=== PATIENT | female | born 1965 | race Caucasian/White ===

== ENCOUNTER 2020-01-24 13:32 | Outpatient (CLI) | payer BC, SELFPAY ==
--- NOTE | ~2020-01-24 | XR_ITS ---
XR finger 5th LT min 2V DATE: 01/24/2020 14:05 INDICATION: Injury, splinter TECHNIQUE: 3 views COMPARISON: None FINDINGS: No radiopaque soft tissue foreign body is evident. There is no subcutaneous emphysema. No fracture, dislocation, periosteal reaction or bone destruction. IMPRESSION: No fracture or dislocation or radiopaque foreign body Reviewed, dictated and finalized at location A.
== END 2020-01-24 13:33 | disposition home or self-care (01) ==
PROVIDERS: PCP Family Medicine; Visit Provider Nurse Practitioner Family
DX: S69.90XA Unspecified injury of unspecified wrist, hand and finger(s), initial encounter (principal); X58.XXXA Exposure to other specified factors, initial encounter
CPT/HCPCS: 73140

== ENCOUNTER 2020-08-09 12:44 | Outpatient (CLI) | payer BC, SELFPAY ==
--- NOTE | ~2020-08-09 | XR_ITS ---
EXAMINATION: XR chest 2V 08/09/2020 13:10 INDICATION: Dyspnea. PROCEDURE: 2 view chest COMPARISON: 07/13/2006 FINDINGS: The lungs are clear. The cardiomediastinal silhouette is within normal limits. There are no pleural effusions. There is no pneumothorax suspected. There are calcified granulomas in the lef t lung and mediastinum. IMPRESSION: 1: NO ACUTE CARDIOPULMONARY DISEASE. Reviewed, dictated and finalized at location A. OGRAPH OPERATOR
== END 2020-08-09 12:45 | disposition home or self-care (01) ==
PROVIDERS: PCP Family Medicine; Visit Provider Nurse Practitioner Family
DX: R06.00 Dyspnea, unspecified (principal); B94.8 Sequelae of other specified infectious and parasitic diseases
CPT/HCPCS: 71046

== ENCOUNTER → 2020-10-21 08:17 | Outpatient (CLI) | payer BC, SELFPAY ==
--- NOTE | ~2020-10-21 | MR_ITS ---
EXAMINATION: MR brain/brain stem wo con DATE: 10/21/2020 09:09 CDT INDICATION: Migraine headaches with aura TECHNIQUE: Magnetic resonance imaging (MRI) of the brain and brainstem was performed without intraven ous contrast. Sequences included sagittal and axial T1-weighted SE, axial diffusion-weighted FS SE, a xial T2*-weighted GRE, axial T2-weighted FLAIR Propeller, and axial T2-weighted Propeller. Apparent d iffusion coefficient (ADC) maps were created. COMPARISON: No prior studies for comparison. FINDINGS: The brain volume and ventricular system are within normal limits. The brain parenchymal si gnal intensity pattern and josue/white matter is normal and there is no evidence of hemorrhage, space occupying masses or infarctions. The flow signal voids of the major arterial structures about the [place] and within the roel r dural venous sinuses appear grossly unremarkable and patent. The seventh and eighth cranial nerve complexes are normal. The mid sagittal image demonstrates a normal craniovertebral junction and jefferson us callosum. The paranasal sinuses are grossly unremarkable. IMPRESSION: 1: Unremarkable MRI of the brain. Reviewed, dictated and finalized at location A.
== END ==
PROVIDERS: PCP Family Medicine; Visit Provider Family Medicine
DX: G43.109 Migraine with aura, not intractable, without status migrainosus (principal)
CPT/HCPCS: 70551

== ENCOUNTER 2021-05-01 17:18 | Emergency (ER) | payer BC, SELFPAY ==
[2021-05-01 17:28] VITALS: BP 119/65; PULSE 78; RESP 20; TEMP 35.5; O2SAT 100
[2021-05-01 17:35] VITALS: BP 119/65; PULSE 78; RESP 20; TEMP 35.5; O2SAT 100
--- NOTE | 2021-05-01 17:59 | ECG_ITS ---
Measurements Intervals [place] Rate: 68 P: 72 VT: 156 QRS: 62 QRSD: 99 T: 43 QT: 382 QTc: 409 Interpretive Statements SINUS RHYTHM POSSIBLE LEFT ATRIAL ENLARGEMENT INCOMPLETE RIGHT BUNDLE BRANCH BLOCK BASELINE WANDER- V1 BORDERLINE ECG Electronically Signed On 05-02-2021 9:23:21 CDT by Kosta Barros D.O.
--- NOTE | 2021-05-01 18:24 | ED.DIZZY ---
HPI - Dizziness General Chief Complaint: Dizziness Stated Complaint: dizzy/fainted/indigestion Time Seen by Provider: 05/01/21 18:10 Source: patient Mode of arrival: ambulatory Limitations: no limitations History of Present Illness HPI Narrative: Bárbara Lara is a 55 yo female with a PMH of migraine headache and GERD who [facility] experiencing what she believes to be was passing out in bed this morning at 5:00 in the morning when she woke up because she was belching from GERD, FERNANDO [place] under the pillow and did a second time. She says she has constant problems with belching associated COVID back in August and has struggled to try to get out of control she was given a PPI she states did not help, taken red wine vinegar before going to bed. She routinely takes Zomig for migraines before bed She did not receive the Covid vaccine after having Covid because she is frightened of the side effects Related Data Home Medications Medication Instructions Recorded Confirmed estradiol 1 mg tablet 1 mg PO DAILY 11/15/19 05/01/21 zolmitriptan 5 mg PO PRN PRN 05/01/21 05/01/21 Allergies Allergy/AdvReac Type Severity Reaction Status Date / Time contact metal agent Allergy Mild Unknown Verified 05/01/21 17:30 codeine Allergy Unknown Unknown Verified 05/01/21 17:30 Review of Systems Review of Systems: CONSTITUTIONAL: Denies fever, chills, sweats. EYES: Denies visual changes, redness, discharge. ENT: Denies rhinorrhea, congestion, sore throat, otalgia. CARDIOVASCULAR: Denies chest pain, palpitations, edema. RESPIRATORY: Denies dyspnea, wheezing, cough GASTROINTESTINAL: Denies abdominal pain, nausea, vomiting, diarrhea. GENITOURINARY: Denies dysuria, hematuria, abnormal discharge SKIN: Denies rash or itching. NEUROLOGIC: Denies numbness, or focal weakness. complaining of dizziness, belching PSYCHIATRIC: Denies anxiety or depression. [facility] Past Medical History Medical History BMI 33.0-33.9,adult COVID-19 Dyspnea GERD (gastroesophageal reflux disease) Migraine with aura, not intractable, without status migrainosus Seasonal allergic rhinitis Family History Family History Mother Hypertension Family history of GERD Bronchitis Grandparent Family history of coronary artery disease Father Hypertension History of bleeding ulcers Social History Social History Smoking status: Former smoker Tobacco type: e-cigarettes/vaping Alcohol intake: never Comments At time of signature, I agree with nursing past medical, surgical, social and family history. There is no relevant family history pertinent to the presenting complaint. Exam Narrative: GENERAL: This is a well-nourished, well-developed patient, in mild distress. HEAD: normocephalic, atraumatic. EYES: . Sclera clear/white. Vision is grossly intact. EARS: External ears normal,. Hearing grossly intact. NOSE: External nose normal without nasal discharge, nares without redness, no rhinorrhea. THROAT: Mucous membranes moist, NECK: Neck supple, non-tender CARDIOVASCULAR: Regular rate and rhythm without murmurs, gallops, or rubs. RESPIRATORY: Clear to auscultation. Breath sounds equal bilaterally. No wheezes, rales, or rhonchi. GASTROINTESTINAL: Abdomen soft, SKIN: warm, intact with no suspicious lesions or rash, good texture and turgor. NEURO: awake, alert, and oriented to person, place and time. There were no obvious focal neurologic abnormalities. Steady gait EXTREMITIES: Normal range of motion. BACK: Nontender without deformity Course Course Emergency Course: Patient here complaining of dizziness that occurred this morning continues to have GERD EKG done which appears nonspecific specific her rate 68 with normal CO 156 ms QRS duration is 99 no prolonged QT C interval Started o
== END 2021-05-01 18:36 | disposition home or self-care (01) ==
PROVIDERS: Emergency Provider Nurse Practitioner; PCP Family Medicine
DX: R42 Dizziness and giddiness (principal); K21.9 Gastro-esophageal reflux disease without esophagitis; Z86.16 Personal history of COVID-19; I45.10 Unspecified right bundle-branch block
CPT/HCPCS: 93005; 99213; G0463